=== PATIENT | female | born 2005 | race African-American/Black ===

== ENCOUNTER 2025-05-24 07:20 | Emergency (ER) | payer MEDICAID, OTHER ==
[~2025-05-24] VITALS: Ht 170.2 cm; Wt 105.0 kg
[2025-05-24 07:28] VITALS: O2SAT 99
[2025-05-24] MEDS ORDERED: IBUP-1455 MT (08:34)
[2025-05-24] MEDS ORDERED: METH-653 MT (08:34)
[2025-05-24] MEDS: IBUPROFEN 600MG TABLET PO ONE (08:40)
[2025-05-24] MEDS: METHOCARBAMOL 500MG TABLET PO ONE (08:40)
[2025-05-24 08:42] VITALS: BP 144/92; PULSE 81; RESP 16; TEMP 36.8; O2SAT 99
== END 2025-05-24 08:29 | disposition home or self-care (01) ==
LOC: ER 07:20
DX: S13.4XXA Sprain of ligaments of cervical spine, initial encounter (principal); S43.401A Unspecified sprain of right shoulder joint, initial encounter; Z79.899 Other long term (current) drug therapy; V43.52XA Car driver injured in collision with other type car in traffic accident, initial encounter; Y93.89 Activity, other specified; Y92.89 Other specified places as the place of occurrence of the external cause; Y99.8 Other external cause status
CPT/HCPCS: 81025; 99283